=== PATIENT | female | born 1985 | race Caucasian/White ===

== ENCOUNTER 2016-11-14 06:32 | Inpatient (IN) | payer BC ==
[~2016-11-14 06:32] MED LIST: Scopolamine 1.5 MG Transdermal Patch TOP SCH
[2016-11-14] MEDS ORDERED: Dextrose 5%-Lactated Ringers 1,000 ML IV SCH (07:00)
[2016-11-14] MEDS ORDERED: Gabapentin 300 MG Cap PO ONE (07:00)
[2016-11-14] MEDS ORDERED: Scopolamine 1.5 MG Transdermal Patch TRDERM SCH (07:15)
[2016-11-14] MEDS ORDERED: fentaNYL 250 MCG/5 ML SDV ONE (07:36)
[2016-11-14] MEDS ORDERED: Propofol 200 MG/20 ML SDV ONE (07:37)
[2016-11-14] MEDS ORDERED: Dexamethasone 4 MG/ML SDV ONE (07:37)
[2016-11-14] MEDS ORDERED: Ondansetron 4 MG/2 ML SDV ONE (07:37)
[2016-11-14] MEDS ORDERED: Neostigmine Methylsulfate 1 MG/ML 5 ML Syringe ONE (07:37)
[2016-11-14] MEDS ORDERED: Midazolam 1 MG/ML 2 ML SDV ONE (07:37)
[2016-11-14] MEDS ORDERED: Succinylcholine/Normal Saline 200 MG/10 ML Syringe ONE (07:37)
[2016-11-14] MEDS ORDERED: Rocuronium 50 MG/5 ML Vial ONE ×2 (07:37→09:51)
[2016-11-14] MEDS ORDERED: FENTANYL PATCH ASK TOP SCH (08:00)
[2016-11-14] MEDS ORDERED: Ropivacaine 60 ML, Dexamethasone 8 MG, EPINEPHrine 0.4 MG, Sodium Chloride 0.9% 17.6 ML NERVRT SCH ×4 (08:15)
[2016-11-14] MEDS ORDERED: Lidocaine 2% 100 MG/5 ML Syringe IVPUSH ONE (08:30)
[2016-11-14] MEDS ORDERED: Ketamine 500 MG/5 ML MDV IV ONE ×2 (08:30→08:45)
[2016-11-14] MEDS: cefOXitin 2 GM in Sodium Chloride 0.9% 50 ML IV ONE ×2 (08:42→14:17)
[2016-11-14] MEDS ORDERED: Lactated Ringers 1,000 ML ONE (09:43)
[2016-11-14] MEDS: cefOXitin 2 GM Vial ONE ×2 (10:01→10:55)
[2016-11-14] MEDS ORDERED: Scopolamine 1.5 MG Transdermal Patch ONE (10:19)
[2016-11-14] MEDS ORDERED: MEPIVACAINE ONE (10:19)
[2016-11-14] MEDS ORDERED: Naloxone 0.4 MG/ML SDV IVPUSH PRN (11:08)
[2016-11-14] MEDS ORDERED: HYDROmorphone/Normal Saline 15 MG/30 ML PCA IV PRN (11:08)
[2016-11-14] MEDS ORDERED: Naloxone 0.4 MG/ML SDV IV PRN (11:10)
[2016-11-14] MEDS ORDERED: SCOPOLAMINE PATCH ASK TOP SCH (13:22)
[2016-11-14] MEDS ORDERED: Ondansetron 4 MG/2 ML SDV IVPUSH PRN (13:22)
[2016-11-14] MEDS ORDERED: Labetalol 20 MG/4 ML Syringe IVPUSH PRN (13:22)
[2016-11-14] MEDS ORDERED: hydrOXYzine HCl 50 MG/ML SDV IM PRN (13:22)
[2016-11-14] MEDS: Lidocaine 0.4%/D5W 2 GM/500 ML BAG IV SCH (13:46)
[2016-11-14] MEDS: Dextrose 5%-Lactated Ringers 1,000 ML IV SCH (13:47)
[2016-11-14] MEDS: Gabapentin 250 MG/5 ML Solution ML 470 ML Bottle PO SCH ×2 (14:34→21:07)
[2016-11-14] MEDS ORDERED: FENTANYL PATCH CHECK TOP SCH (15:00)
[2016-11-14] MEDS: cefOXitin 2 GM in Sodium Chloride 0.9% 50 ML IV SCH ×2 (15:11→21:06)
[2016-11-14] MEDS: Acetaminophen Soln 650 MG/20.3 ML UD Cup PO SCH ×2 (15:17→21:11)
[2016-11-14] MEDS ORDERED: MVI, Adult with Vitamin K 10 ML, Thiamine 200 MG, Chromium/Copper/Mang/Selen/Zn 1 ML in... IV SCH ×4 (16:00)
[2016-11-14] MEDS ORDERED: Pantoprazole 40 MG Vial IVPUSH SCH (16:00)
[2016-11-14] MEDS: Heparin Sodium 5,000 Units/ML Vial SUBCUT SCH (17:34)
[2016-11-15] MEDS: Dextrose 5%-Lactated Ringers 1,000 ML IV SCH ×2 (00:08→06:16)
[2016-11-15] MEDS: Lidocaine 0.4%/D5W 2 GM/500 ML BAG IV SCH (01:25)
[2016-11-15] MEDS ORDERED: Iohexol 647 MG/ML 50 ML SDV PO SCH (04:15)
[2016-11-15] MEDS: cefOXitin 2 GM in Sodium Chloride 0.9% 50 ML IV SCH ×2 (04:30→08:55)
[2016-11-15] MEDS: Acetaminophen Soln 650 MG/20.3 ML UD Cup PO SCH ×4 (06:12→22:30)
[2016-11-15] MEDS: Heparin Sodium 5,000 Units/ML Vial SUBCUT SCH ×2 (06:12→17:37)
[2016-11-15] MEDS ORDERED: SUMAtriptan 50 MG Tab PO PRN (07:41)
[2016-11-15] MEDS ORDERED: Dextrose 5%-Lactated Ringers 1,000 ML IV SCH ×2 (07:45→12:00)
[2016-11-15] MEDS: SCOPOLAMINE PATCH CHECK TOP SCH (08:49)
[2016-11-15] MEDS: Celecoxib 100 MG Cap PO SCH (08:52)
[2016-11-15] MEDS: Gabapentin 250 MG/5 ML Solution ML 470 ML Bottle PO SCH ×3 (08:55→21:01)
--- NOTE | 2016-11-15 09:22 | CR ---
Limited upper GI The patient is status post Deyanira-en-Y gastric bypass. There are left upper quadrant drains in place. There is no extravasation of contrast. The gastric pouch empties readily into a nondilated Deyanira limb . No complications are evident. Impression: 1. Status post Deyanira-en-Y gastric bypass without evidence for complication.
--- NOTE | 2016-11-15 09:56 | PN ---
DATE OF SERVICE: 11/15/2016 SUBJECTIVE: Abby is postop day 1 following a Deyanira-en-Y gastric bypass surgery. She states her pain is controlled. She has not had to use any of the SHAPER SETTER or extra pain medication. Output has been adequate via Sue catheter at 3865, LUIS put out 60 and 40 of a light red drainage respectively. She has been up ambulating. Remainder of review of systems negative for any pertinent positives and negatives. She did have a temp max of 101.7 at 0300 hours. Her temp currently is 99.7. OBJECTIVE: GENERAL: Abby is a 31-year-old female. She is alert and orientated. Color is good. She is sitting up in the chair. SKIN: Warm and dry. VITAL SIGNS: TPR 99.7, 65, 18. Blood pressure is 141/77. HEENT: Negative. NECK: Supple. HEART: Regular rate and rhythm. LUNGS: Clear. ABDOMEN: Dressing was taken down. LUIS drain sites intact and sutures in place. EXTREMITIES: Without peripheral edema. ASSESSMENT: Laparoscopic Deyanira-en-Y gastric bypass surgery, liver biopsy, repair of diaphragmatic hernia, and excision of mediastinal lipoma for morbid obesity, hepatomegaly, diaphragmatic hernia, and mediastinal lipoma on 11/14/2016. PLAN: Decrease IV to 100 mL per hour at noon. Discontinue Seu. Discontinue continuous pulse ox. Discontinue telemetry. Dressing off, may shower. Check vital signs and O2 saturation checks every 4 hours. Step one gastric bypass diet. Propranolol 80 mg p.o. q.h.s. Good pulmonary toilet encouraged. We will evaluate p.r.n. or in a.m. Pati Middleton PA-C /[id number]
[2016-11-15] MEDS ORDERED: MVI, Adult with Vitamin K 10 ML, Thiamine 200 MG, Chromium/Copper/Mang/Selen/Zn 1 ML in... IV SCH ×4 (16:00)
[2016-11-15] MEDS ORDERED: Propranolol 80 MG Cap.ER PO SCH (21:00)
[2016-11-15] MEDS: Propranolol 40 MG Tab PO SCH (21:00)
[2016-11-16] MEDS: Heparin Sodium 5,000 Units/ML Vial SUBCUT SCH (05:44)
[2016-11-16] MEDS: Acetaminophen Soln 650 MG/20.3 ML UD Cup PO SCH ×2 (05:44→09:31)
[2016-11-16 07:21] VITALS: BP 110/58
[2016-11-16] MEDS ORDERED: Cyanocobalamin (Vitamin B12) 1,000 MCG/ML SDV IM ONE (09:00)
[2016-11-16] MEDS: Propranolol 40 MG Tab PO SCH (09:31)
[2016-11-16] MEDS: SCOPOLAMINE PATCH CHECK TOP SCH (09:32)
[2016-11-16] MEDS: Celecoxib 100 MG Cap PO SCH (09:32)
[2016-11-16] MEDS: Gabapentin 250 MG/5 ML Solution ML 470 ML Bottle PO SCH (09:34)
--- NOTE | 2016-11-17 13:20 | DISCH ---
ADMISSION DIAGNOSES: Morbid obesity, chronic headaches, depression, infertility. DISCHARGE DIAGNOSES: Laparoscopic Deyanira-en-Y gastric bypass surgery, liver biopsy, repair of diaphragmatic hernia, and excision of mediastinal lipoma for morbid obesity, hepatomegaly, diaphragmatic hernia, mediastinal lipoma on 11/14/2016. HISTORY: Abby is a 31-year-old female with longstanding history of morbid obesity and increasing comorbidities. After preoperative evaluation and discussion of possible risks and possible complications, she wished to proceed with surgical procedure. HOSPITAL COURSE: Abby had her surgery on 11/14/2016, she had no operative complications. On postop day #1, her upper GI was normal and she was started on a step 1 gastric bypass diet. On postop day #2, she was advanced to a step-2 gastric bypass diet without cereal. She had dietary education of B12 1000 mcg mg IM injection. Her activity was good. Vital signs stable. Pain was managed, and she was ready to be discharged to home. PHYSICAL EXAMINATION: GENERAL: Abby Dunbar is a 31-year-old female. VITAL SIGNS: Height 5 feet 2.6 inches, weight is 262 pounds. TPR is 99.1, 60, 16, blood pressure 110/58. HEENT: Negative. NECK: Supple. HEART: Regular rate and rhythm. LUNGS: Clear. ABDOMEN: 4x4s over LUIS drain sites. Sutures look good. Abdominal binder is on. EXTREMITIES: Without peripheral edema. DISPOSITION: Discharged to home. CONDITION: Stable and improving. FOLLOW UP APPOINTMENT: Pati Middleton PA-C, on 11/24/2016 at 10:00 a.m. HOME MEDICATION: 1. Tylenol 650 mg/20.3 mL four times a day scheduled one week, then p.r.n. 2. Celebrex 200 mg p.o. daily #7. 3. Neurontin (gabapentin) 300 mg oral 3 times daily for 1 week. 4. Multivitamin Children's chewable 1 chewable twice daily #100. 5. Propranolol 40 mg p.o. twice daily, #60 and 11 refills. 6. B12 25 mcg sublingual daily. 7. She is to discontinue taking the B complex at this time and we will restart in one month and DC Inderal LA 80 mg. DIET: After discharge, step-2 gastric bypass diet with no cereal. ACTIVITY: No lifting greater than 10 pounds for 2 weeks. Walk 8 times daily inside your home. Shower bathing, may shower. Notify provider if any fever, increased pain, swelling, redness, drainage, nausea, or vomiting. WOUND INCISION CARE: Keep site clean and dry. Wear abdominal binder for 2 weeks and then as tolerated. Use incentive spirometer 10 times every hour while awake.
--- NOTE | 2016-11-20 09:27 | OR ---
DATE OF PROCEDURE: 11/14/2016 PREOPERATIVE DIAGNOSES: 1. Morbid obesity. 2. Marked hepatomegaly. 3. Paraesophageal diaphragmatic hernia. 4. Mediastinal lipoma. OPERATIVE PROCEDURE: 1. Bilateral transversus abdominis plane block (29028). 2. Laparoscopic Deyanira-en-Y gastric bypass with long limb gastroenterostomy (45973). 3. Reinaldo-Cut needle liver biopsy (17745). 4. Repair of paraesophageal diaphragmatic hernia (53709). 5. Excision of mediastinal lipoma (07938). ANESTHESIA: General. CYBER ANALYST: Pati Middleton PA-C. INDICATIONS FOR PROCEDURE: This is a 31-year-old female presenting for Deyanira-en-Y gastric bypass. After preop evaluation and discussion of management of her morbid obesity, she wished to proceed with a gastric bypass. The potential risks of the procedure including bleeding, infection, injury to underlying viscera, problems with bowel obstruction over time, as well as possibility of cardiopulmonary, septic, or hemorrhagic complications leading to were discussed. The patient is also going to undergo a transversus abdominis plane block. Potential risks of that procedure including bleeding, possible injury to underlying viscera were likewise reviewed, and the patient wishes to proceed. DETAILS OF PROCEDURE: The patient was taken to the operating room, and after general endotracheal anesthesia was induced, she was placed in a lithotomy position. A Sue catheter was inserted. At this point, the transversus abdominis plane blocks were placed bilaterally using ultrasound guidance in a sterile technique, 40 mL of premixed solution containing ropivacaine, dexamethasone, epinephrine, and sodium chloride were placed. Good filling of the plane between the transversus abdominis and the internal oblique fascia was confirmed during the injection, after initial aspiration revealed no blood return. At this point, the abdomen was prepped and draped. At 15 cm inferior and 5 cm left of xiphoid process, a transverse incision was made and the peritoneal cavity entered under direct vision with an Optiview trocar and inflated to 15 mmHg pressure with CO2. Laparoscope was then reinserted. No underlying trocar insertion site injuries were seen. Following this, 5 additional trocars were placed across the upper and mid abdomen, and general exploration was undertaken. The patient was noted to have marked hepatomegaly with liver volume being roughly 2 to 3 times normal grossly fatty infiltrated. Given this, Reinaldo- Cut needle biopsies were obtained from the left lobe of the liver. Minimal bleeding from the biopsy site was controlled with electrocautery. At this point, the omentum was then divided in the midline up to the level of the transverse colon. The transverse colon was then retracted superiorly allowing identification of small- bowel at the ligament of Treitz. Small bowel was then traced out 200 cm distal to that point, was divided transversely with a DOLORES stapler. Small bowel was traced out additional 150 cm where the [id number] enteroenterostomy was accomplished with internal firing at the Endo-DOLORES 60 mm stapler. The common opening was then closed transversely with the same stapler and angles anastomosed and mesenteric defect approximated with some 0 Ethibond stitch along with fibrin sealant. The divided end of the Deyanira limb was then from the mesentery for a few centimeters, which allowed an antecolic position of the Deyanira limb up to the level of the gastroesophageal junction without tension. The liver was then retracted anteriorly. The patient was noted to have moderate-sized paraesophageal diaphragmatic hernia. This included an area of gastric fundus, perigastric fat prolapsing into a plane anterior to the course of the esophagus. This was reduced and the peritoneum overlying the hernia was divided, and anterior repair of the diaphragmatic hernia was then accomplished with some 0 Ethibond sutures reinforced with PTFE pledgets. During the course of the dissection, a mediastinal lipoma was encountered. To facilitate adequate closure, this was dissected free and sent as a separate histologic specimen. At this point, the gastrointestinal balloon catheter was inflated to 15 mL and pulled up snugly against the EG junction. Gastric wall over the apex of the balloon was then marked with electrocautery. Balloon catheter was deflated and pulled up from the esophagus. The lesser omental tissue adjacent to gastric cardia was then incised, allowing dissection behind the stomach at that level. The pouch was initially started with a transverse firing of the DOLORES stapler at the cauterized elinor on the gastric cardia. The pouch was then completed with 2 additional firings of DOLORES stapler up to and through the angle of His. Upon completion of the pouch, both staple lines were noted to be intact. The anvil of a 21 mm EEA stapler was attached to Iron sump type tube, and the latter was brought down through the mouth and taken out through a small opening in the gastric pouch, allowing the anvil likewise to be placed into the gastric pouch. The divided end of the Deyanira limb was then opened and the main body of the EEA stapler passed several centimeters in the lumen of the small bowel, brought up the anvil, united with it, thus creating the gastrojejunostomy. Upon removal of stapler, double donuts of mucosa were noted within. The small bowel was closed off with a vascular staple line. Gastrojejunostomy was reinforced with some 3-0 Vicryl seromuscular stitch, along with fibrin sealant. Leak test was accomplished with injection of 120 mL of air in the gastric pouch while submerged with cefoxitin-containing saline solution. No leaks were identified. Two Michel-Barton drains were placed adjacent to the gastrojejunostomy and taken out subcostal trocar sites. With no further problems noted, trocars were removed, the peritoneal cavity deflated, and the incision was closed with 6-0 Vicryl skin stitch. Drains were affixed with some 4-0 Vicryl stitch. The patient was taken to the recovery room in satisfactory condition. Physician assistant public defender, Pati Middleton, played an essential role in assisting in this case, helping to position the patient, retract structures as needed, as well as suturing and cutting sutures when indicated. Her presence improved patient's safety and decreased operative time. Amarjit Sierra MD /[id number]
== END 2016-11-16 13:15 | disposition home or self-care (01) | DRG 403 ==
LOC: JP.MS 06:32 → JP.SDS 06:32 → EDSTATUS 08:30 → JP.2SS 12:00
PROVIDERS: ADMIT Surgery; ATTEND Surgery
PROC: 0D164ZA Bypass Stomach to Jejunum, Percutaneous Endoscopic Approach (ICD-10-PCS; principal; 2016-11-14)
PROC: 3E0T3BZ Introduction of Anesthetic Agent into Peripheral Nerves and Plexi, Percutaneous Approach (ICD-10-PCS; principal; 2016-11-14)
PROC: 0FB24ZX Excision of Left Lobe Liver, Percutaneous Endoscopic Approach, Diagnostic (ICD-10-PCS; principal; 2016-11-14)
PROC: 0WBC4ZX Excision of Mediastinum, Percutaneous Endoscopic Approach, Diagnostic (ICD-10-PCS; principal; 2016-11-14)
PROC: 0BQS4ZZ (ICD-10-PCS; principal; 2016-11-14)
PROC: 0BQR4ZZ (ICD-10-PCS; principal; 2016-11-14)
PROC: 3E0T33Z Introduction of Anti-inflammatory into Peripheral Nerves and Plexi, Percutaneous Approach (ICD-10-PCS; principal; 2016-11-14)
DX: E66.01 Morbid (severe) obesity due to excess calories (principal); Z68.42 Body mass index [BMI] 45.0-49.9, adult; R16.0 Hepatomegaly, not elsewhere classified; D17.4 Benign lipomatous neoplasm of intrathoracic organs; K44.9 Diaphragmatic hernia without obstruction or gangrene; K76.0 Fatty (change of) liver, not elsewhere classified; Z87.891 Personal history of nicotine dependence; Z88.8 Allergy status to other drugs, medicaments and biological substances; Z91.018 Allergy to other foods; F10.21 Alcohol dependence, in remission
CPT/HCPCS: 36415; 74240; 74240-26; 80053; 83735; 84100; 85027; 86850; 86900; 86901; 88304; 88307; 94762; A9270-GY; C9113; J0171; J0670; J0694; J1100; J1170; J1644; J2001; J2250; J2405; J2704; J2795; J3010; J3411; J3420; J7030; J7042; J7050; J7120; Q9967

== ENCOUNTER 2017-07-23 08:36 | Inpatient (IN) | payer BC ==
[~2017-07-23 08:36] MED LIST changes: +Bupivacaine 0.5%/EPINEPHrine 1:200,000 50 ML MDV ONE; +Meropenem 500 MG SDV ONE; -Scopolamine 1.5 MG Transdermal Patch TOP SCH
[2017-07-23] MEDS ORDERED: Acetaminophen 500 MG Tab PO ONE (09:00)
[2017-07-23] MEDS: Dextrose 5%-Lactated Ringers 1,000 ML IV SCH ×3 (09:35→21:50)
[2017-07-23] MEDS ORDERED: ceFAZolin 2 GM in Sodium Chloride 0.9% 50 ML IV ONE (10:00)
[2017-07-23] MEDS ORDERED: ceFAZolin 2 GM in Premix Bag 1 BAG IV ONE (10:00)
[2017-07-23] MEDS ORDERED: Neostigmine Methylsulfate 1 MG/ML 5 ML Syringe ONE (10:11)
[2017-07-23] MEDS ORDERED: fentaNYL 250 MCG/5 ML SDV ONE (10:11)
[2017-07-23] MEDS ORDERED: Dexamethasone 4 MG/ML SDV ONE (10:11)
[2017-07-23] MEDS ORDERED: Ondansetron 4 MG/2 ML SDV ONE (10:11)
[2017-07-23] MEDS ORDERED: Succinylcholine 200 MG/10 ML MDV ONE (10:11)
[2017-07-23] MEDS ORDERED: Rocuronium 50 MG/5 ML Vial ONE (10:11)
[2017-07-23] MEDS ORDERED: Propofol 200 MG/20 ML SDV ONE (10:11)
[2017-07-23] MEDS ORDERED: Glycopyrrolate 0.2 MG/ML 5 ML MDV ONE (10:11)
[2017-07-23] MEDS ORDERED: HYDROmorphone/Normal Saline 15 MG/30 ML PCA IV PRN (10:16)
[2017-07-23] MEDS ORDERED: Naloxone 0.4 MG/ML SDV IVPUSH PRN (10:16)
[2017-07-23] MEDS ORDERED: Lactated Ringers 1,000 ML ONE (12:36)
[2017-07-23] MEDS ORDERED: Naloxone 0.4 MG/ML SDV IV PRN (14:08)
[2017-07-23] MEDS ORDERED: Acetaminophen/oxyCODONE 325-5 MG Tab PO PRN (14:09)
[2017-07-23] MEDS ORDERED: Ondansetron 4 MG/2 ML SDV IVPUSH PRN (14:10)
[2017-07-23] MEDS ORDERED: hydrOXYzine HCl 100 MG/2 ML SDV IM PRN (14:10)
[2017-07-23] MEDS ORDERED: Cyclobenzaprine 10 MG Tab PO PRN (14:11)
[2017-07-23] MEDS: Ketoconazole 2% Crm 30 GM Tube TOP SCH ×2 (14:20→21:19)
[2017-07-23] MEDS ORDERED: Celecoxib 200 MG Cap PO SCH (17:00)
[2017-07-23] MEDS: Acetaminophen 325 MG Tab PO SCH ×2 (17:23→21:18)
[2017-07-23] MEDS: ceFAZolin 2 GM in Sodium Chloride 0.9% 50 ML IV SCH (17:24)
[2017-07-23] MEDS: hydrOXYzine HCl 25 MG Tab PO PRN ×2 (19:28→23:39)
[2017-07-23] MEDS: Gabapentin 300 MG Cap PO SCH (21:18)
[2017-07-24] MEDS: Acetaminophen 325 MG Tab PO SCH ×3 (02:14→10:26)
[2017-07-24] MEDS: ceFAZolin 2 GM in Sodium Chloride 0.9% 50 ML IV SCH ×2 (02:15→09:05)
[2017-07-24] MEDS: Dextrose 5%-Lactated Ringers 1,000 ML IV SCH (05:05)
[2017-07-24 07:24] VITALS: BP 111/63
[2017-07-24] MEDS: Gabapentin 300 MG Cap PO SCH (08:19)
[2017-07-24] MEDS: Ketoconazole 2% Crm 30 GM Tube TOP SCH (08:19)
--- NOTE | 2017-07-24 14:08 | DISCH ---
ADMISSION DIAGNOSES: Umbilical hernia; status post Deyanira-en-Y gastric bypass surgery; unspecified surgical malabsorption; B12 deficiency; eating disorder, in remission; migraine headaches; recovering alcoholic, in remission; and irregular menses. DISCHARGE DIAGNOSES: Diagnostic laparoscopy with lysis of adhesions, repair of incarcerated umbilical hernia with mesh, and placement of Interceed mesh for incarcerated umbilical hernia and extensive intraabdominal adhesions. Date of surgery, 07/23/2017. HISTORY: Abby Dunbar is a 32-year-old female with abdominal pain and small umbilical hernia. After preoperative evaluation and discussion of possible risks and possible complications, she wished to proceed with surgical procedure. HOSPITAL COURSE: Abby had her surgery on 07/23/2017. She had no operative complications. On postop day #1, she was able to be discharged to home. Her pain was well managed. Her activity was good, and her vital signs were stable. PHYSICAL EXAMINATION: GENERAL: Abby Dunbar is a pleasant 32-year-old female. VITAL SIGNS: Height is 5 feet 2 inches. Weight is 205 pounds. TPR 99.1, 56, 16, and blood pressure 111/63. HEENT: Negative. NECK: Supple. HEART: Regular rate and rhythm. LUNGS: Clear. ABDOMEN: Dressings were removed. Roll of Kerlix over umbilical hernia site. She has a candidiasis rash, which is being treated. Abdominal binder was replaced. EXTREMITIES: Without peripheral edema. DISPOSITION: Discharged to home. CONDITION: Stable and improving. FOLLOWUP APPOINTMENT: With Pati Middleton PA-C, on 08/01/2017 at 9 a.m. DISCHARGE MEDICATIONS: Home medications; 1. Tylenol 650 mg oral q.4 hours p.r.n. pain. 2. Celebrex 200 mg oral daily, #14. 3. Gabapentin 300 mg oral 3 times daily, #42. 4. Hydroxyzine, Vistaril, 25 mg oral q.4 hours p.r.n. pain, take 1 to 2 as needed, #50. 5. Ketoconazole, Nizoral, 2% cream apply twice daily to rash between lower abdominal folds. 6. Resume vitamin B12 2500 sublingual once daily. 7. Inderal 40 mg twice daily p.r.n. headache. 8. Imitrex 50 mg one time as directed for migraine headaches. 9. She is to resume multivitamin chewable b.i.d., thiamine 100 mg p.o. daily, and calcium citrate chewable b.i.d. 10.Vitamin D 5000 international units daily. DISCHARGE DIET: Step-4 gastric bypass diet. Drink 8 to 10 glasses of water a day. ACTIVITY: As tolerated. No lifting greater than 10 pounds for 6 weeks. Driving, do not drive while on pain medication. Shower/bathing, may shower. DISCHARGE INSTRUCTIONS: Notify provider if any fever, increased pain, swelling, redness, drainage, nausea, or vomiting. Keep site clean and dry. Wound incision care, wear pressure dressing over umbilical hernia site for 6 to 8 weeks. Wear abdominal binder for 6 to 8 weeks. Special instruction, use incentive spirometer 10 times every hour while awake for 2 weeks.
--- NOTE | 2017-07-30 11:25 | OR ---
DATE OF PROCEDURE: 07/23/2017 PREOPERATIVE DIAGNOSIS: Incarcerated umbilical hernia. POSTOPERATIVE DIAGNOSES: 1. Incarcerated umbilical hernia. 2. Extensive intraabdominal adhesions. OPERATIVE PROCEDURES: Diagnostic laparoscopy with lysis of adhesions and: 1. Repair of incarcerated umbilical hernia with mesh (76941). 2. Placement of Interceed mesh to displace viscera from pelvic and abdominal wall to limit recurrent adhesion formation ([id number]). ANESTHESIA: General. POWER ELECTRONICS RESEARCH ENGINEER: Pati Middleton PA-C. INDICATION FOR PROCEDURE: This is a 32-year-old presenting with a painful incarcerated hernia at the umbilical site. Plan is to proceed with a laparoscopic or, if necessary, open approach and repair of this with mesh. Potential risks including bleeding, infection, injury to underlying viscera, possibility of mesh becoming infected, or the hernia recurring were all reviewed, and the patient wishes to proceed. DETAILS OF PROCEDURE: The patient was taken to the operating room and placed in a supine position. After general endotracheal anesthesia was induced, a Sue catheter was inserted, and the abdomen was prepped and draped. In the left lateral mid abdomen, a transverse incision was made, and the peritoneal cavity was entered under direct vision with an Optiview trocar and inflated to 15 mmHg pressure with CO2. Laparoscope was then reinserted. No underlying trocar insertion site injuries were seen. Following this, 5 mm trocars were placed in the right upper quadrant, right lower quadrant, left lower quadrant, and left upper quadrant. The patient had quite a bit in the way of adhesions to the anterior abdominal wall, as well as the pelvis, some of these between small bowel and others between the omentum and the pelvic and the abdominal wall. These were taken down with cautery and blunt dissection. At that point, the area of the herniation was identified. The patient had a fairly small fascial defect measuring around 8 mm, but had some densely incarcerated preperitoneal fat within it. This was gradually reduced. Once all of these contents were delivered, a Ventrio ST mesh was selected. This was a mesh with a circular configuration and a diameter of 11.2 cm. A single stitch was placed on the polypropylene side of the mesh at center, and then the mesh was soaked in antibiotic-containing saline solution and placed in intraperitoneal location. A small stab wound inferior to the umbilicus was made and a suture passing instrument was then passed through the center of the hernia defect. The suture was pulled up and thus the mesh was pulled up against the anterior abdominal wall. This was affixed circumferentially with absorbable tacking screws and the the suture cut at the level of the skin. At this point, there appeared to be good fixation of the hernia mesh, and a satisfactory repair had been completed. To limit recurrent adhesion formation, Interceed mesh was then placed underneath the Ventrio ST mesh and then, from that point, further down toward the pelvis. At that point, the trocars were sequentially removed. The fascia at the 12-mm camera port was closed with 0 Vicryl stitch and the skin with a 4-0 Vicryl skin stitch. Dressing was applied. The patient was taken to the recovery room in a satisfactory condition. Physician assistant plant control operator, Pati Middleton, played an essential role in assisting in this case, helping to position the patient, retract structures as needed, as well as suturing and cutting sutures when indicated. Her presence improved patient safety and decreased the operative time. Amarjit Sierra MD /[id number]
== END 2017-07-24 10:49 | disposition home or self-care (01) | DRG 227 ==
LOC: JP.SDSSCHI 08:36 → JP.SDS 08:36 → JP.MS 12:50 → EDSTATUS 16:15
PROVIDERS: ADMIT Surgery; ATTEND Surgery
PROC: 0WUF4JZ Supplement Abdominal Wall with Synthetic Substitute, Percutaneous Endoscopic Approach (ICD-10-PCS; principal; 2017-07-23)
PROC: 3E0M05Z Introduction of Adhesion Barrier into Peritoneal Cavity, Open Approach (ICD-10-PCS; 2017-07-23)
PROC: 0DNW4ZZ Release Peritoneum, Percutaneous Endoscopic Approach (ICD-10-PCS; 2017-07-23)
DX: K42.0 Umbilical hernia with obstruction, without gangrene (principal); Z98.84 Bariatric surgery status; Z98.0 Intestinal bypass and anastomosis status; K91.2 Postsurgical malabsorption, not elsewhere classified; E53.8 Deficiency of other specified B group vitamins; G43.909 Migraine, unspecified, not intractable, without status migrainosus; N92.6 Irregular menstruation, unspecified; F10.21 Alcohol dependence, in remission; F50.9 Eating disorder, unspecified; K66.0 Peritoneal adhesions (postprocedural) (postinfection)
CPT/HCPCS: 81025; 88302; A9270-GY; C1781; J0330; J0690; J1100; J1170; J2185; J2405; J2704; J2710; J3010; J7042; J7050; J7120